=== PATIENT | female | born 1975 | race Caucasian/White ===

== ENCOUNTER 2017-02-24 19:19 | Emergency (ER) | payer OTHER ==
[~2017-02-24] VITALS: Ht 160 cm; Wt 73.0 kg
[~2017-02-24 19:19] MED LIST: ACET1TAB40 PO
[2017-02-24 19:22] VITALS: Ht 160 cm; Wt 73.0 kg
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
[2017-02-24 21:18] LABS: ADD UMIC YES; UR ASCORBIC ACID 20 mg/dL (NEGATIVE); UR BACTERIA FEW /HPF (NONE SEEN); UR BILIRUBIN (Dip) NEGATIVE (NEGATIVE); UR BLOOD (Dip) NEGATIVE (NEGATIVE); UR CLARITY SLIGHTLY CLOUDY (CLEAR); UR COLOR YELLOW (YELLOW); UR GLUCOSE (Dip) NEGATIVE (NEGATIVE); UR KETONES (Dip) NEGATIVE (NEGATIVE); UR LEUKOCYTE ESTERASE (Dip) 2+ Leu/ul (NEGATIVE); UR MUCUS FEW /HPF (NONE SEEN); UR NITRITE (Dip) NEGATIVE (NEGATIVE); UR RBC 1 /HPF (0-5); UR SPECIFIC GRAVITY (Dip) 1.027 (1.003-1.030); UR SQUAMOUS EPITHELIAL CELL FEW /HPF (FEW); UR TOTAL PROTEIN (Dip) NEGATIVE (NEGATIVE); UR UROBILINOGEN (Dip) NEGATIVE (NEGATIVE)
--- NOTE | 2017-02-24 23:28 | RADRPT ---
PROCEDURE: Cervical spine. CLINICAL INDICATION: Neck pain. TECHNIQUE: Three views including AP, lateral and odontoid views of the cervical spine were perfor med. The images were reviewed on a PACS workstation. COMPARISON: None. FINDINGS: There is no acute fracture or subluxation. Cervical vertebral body heights and alignment are within normal limits. There is minimal loss of disc height at C5-C6 with small anterior marginal osteophy rogelio. The visualized dens and lateral masses are unremarkable. Prevertebral soft tissues are unrema rkable. There are bilateral cervical ribs at C7. IMPRESSION: No acute fracture or subluxation. Mild discogenic disease at C5-C6. Bilateral cervical ribs at C7. .Fox Pruitt MD, Date Time Electronically viewed and signed by .Fox Pruitt MD, MD on 02/24/2017 23:28 .T/
--- NOTE | 2017-02-24 23:30 | RADRPT ---
PROCEDURE: Lumbar spine. CLINICAL INDICATION: Low back pain. TECHNIQUE: Three views including AP, lateral and cone-down lateral view of the lumbar spine were obtained. COMPARISON: 05/13/2015. FINDINGS: There is no acute fracture or subluxation. Lumbar vertebral body heights and alignment are within n ormal limits. Intervertebral disk spaces are within normal limits. The posterior elements are unre markable. IMPRESSION: No evidence of fracture or subluxation. .Fox Pruitt MD, Date Time Electronically viewed and signed by .Fox Pruitt MD, MD on 02/24/2017 23:29 .T/
[2017-02-24] MEDS ORDERED: IBUP400T22 PO (23:37)
[2017-02-24 23:53] VITALS: BP 121/76; PULSE 82; RESP 18
== END 2017-02-24 23:54 | disposition home or self-care (01) ==
LOC: FTE 19:19
DX: S39.012A Strain of muscle, fascia and tendon of lower back, initial encounter (principal); V89.2XXA Person injured in unspecified motor-vehicle accident, traffic, initial encounter
CPT/HCPCS: 72050; 72100; 81001; Z7502

== ENCOUNTER 2017-03-15 05:58 | Day surgery (SDC) | payer OTHER ==
[~2017-03-15] VITALS: Ht 157.5 cm; Wt 73.3 kg
[2017-03-15] VITALS (12 sets, daily range): BP systolic 103–144; BP diastolic 58–75; PULSE 52–68; RESP 12–18; Ht 157.5 cm; Wt 73.3 kg
[~2017-03-15 05:58] MED LIST changes: +IBUP400T22 PO
[2017-03-15] MEDS ORDERED: PROPOFOL 20 ML ONE (07:29)
[2017-03-15] MEDS ORDERED: MIDAZOLAM 1 MG/ML 2 ML INJ ONE (07:29)
[2017-03-15] MEDS ORDERED: FENTAnyl 50 MCG/ML VIAL ONE (07:30)
[2017-03-15] MEDS ORDERED: METOCLOPRAMIDE 10 MG INJ ONE (07:40)
[2017-03-15] MEDS ORDERED: CEFAZOLIN 1 GM INJ ONE (07:40)
[2017-03-15] MEDS ORDERED: ONDANSETRON 4 MG INJ ONE (07:40)
[2017-03-15] MEDS ORDERED: DEXAMETHASONE 4 MG/ML 1 ML INJ ONE (07:40)
[2017-03-15] MEDS ORDERED: LABETALOL HCL 20MG INJ IV PRN (08:00)
[2017-03-15] MEDS ORDERED: MEPERIDINE 25 MG INJ IV PRN (08:00)
[2017-03-15] MEDS ORDERED: FENTAnyl 50 MCG/ML VIAL IV PRN ×2 (08:00)
[2017-03-15] MEDS ORDERED: hydrALAzine 20 MG INJ IV PRN (08:00)
[2017-03-15] MEDS ORDERED: METOCLOPRAMIDE 10 MG INJ IV PRN (08:00)
[2017-03-15] MEDS ORDERED: DIPHENHYDRAMINE 50 MG INJ IV PRN (08:00)
[2017-03-15] MEDS ORDERED: ONDANSETRON 4 MG INJ IV PRN (08:00)
[2017-03-15] MEDS ORDERED: HYDROmorphONE (0.2 MG/ML) 10ML SYG IV PRN ×3 (08:00)
[2017-03-15] MEDS ORDERED: OXYCODONE/ACETAMINOPHEN (5/325) TAB PO PRN (08:00)
[2017-03-15] MEDS ORDERED: EPHEDrine SULFATE 50 MG/5 ML SYG IV PRN (08:00)
[2017-03-15] MEDS: FENTAnyl 50 MCG/ML VIAL IV PRN ×4 (08:44→09:11)
--- NOTE | 2017-03-15 09:31 | OPR ---
Date/Time of Note Date/Time of Note DATE: 03/15/17 TIME: 09:25 Operative Report Free Text/Dictation DATE OF OPERATION: 03/15/2017 PREOPERATIVE DIAGNOSIS: Menometrorrhagia, submucosal myoma causing vaginal bleeding. POSTOPERATIVE DIAGNOSIS: same OPERATION PERFORMED: Hysteroscopy, excision of myoma, Hydrothermal Endometrial Ablation SURGEON: Kaley Suarez MD ANESTHESIA: General. COMPLICATIONS: None. OPERATIVE FINDINGS AT SURGERY: Small submucosal myoma. Otherwise normal endometrial cavity. CONSENT: Please see preoperative notes from my office for the consent process. DESCRIPTION OF PROCEDURE: She was taken to the operating room and general anesthesia was induced. She was prepped and draped in the usual sterile fashion. Surgical time out was done. The patient and procedure were identified. The anterior lip of the cervix was grasped with a single-tooth tenaculum and dilated to size 6 Hegar dilators. The hysteroscope Symphion was inserted and the endometrial cavity was visualized clearly. At this time the resectoscope was inserted and the small submucosal myoma was resected completely. The resectoscope was removed and the HTA camera inserted. Extra Tenaculum was applied to cervix. Seal check was done and passed. Ablation initiated. there was no fluid loss and ablation was not interrupted. Cooling period was done. The endometrium turned white. Camera was removed. The tenaculum was removed and there was no bleeding from the tenaculum site. The patient tolerated the procedure well. Procedure Date: Mar 15, 2017 Preoperative Diagnosis Menometrorrhagia, submucosal myoma causing vaginal bleeding. Postoperative Diagnosis Menometrorrhagia, submucosal myoma causing vaginal bleeding. Operation/Procedure Performed Hysteroscopy, excision of myoma, Hydrothermal Endometrial Ablation Surgeon see signature line Space Planner none Anesthesia Type: general Estimated Blood Loss: minimal Transfusion none Specimen Endometrial resection Grafts/Implants none Complications none Pt Condition Post Procedure: stable Disposition: PACU Procedure Description see above KALEY SUAREZ MD Mar 15, 2017 09:31
== END 2017-03-15 11:00 | disposition home or self-care (01) ==
LOC: SDS 05:58
PROVIDERS: ATTEND Specialist
DX: N92.1 Excessive and frequent menstruation with irregular cycle (principal); D25.0 Submucous leiomyoma of uterus
CPT/HCPCS: 58353; 84703; 88305; J0690; J1100; J1170; J2175; J2250; J2405; J2765; J3010; Z7512; Z7610